=== PATIENT | male | born 2000 | race African-American/Black ===

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

== ENCOUNTER 2019-06-12 19:49 | Emergency (ER) | payer SELFPAY ==
--- NOTE | 2019-06-12 23:19 | ER Document Report ---
HPI - HPI Patient complains to provider of: sore throat, uri sx Time Seen by Provider: 06/12/19 22:47 Onset: This morning Onset/Duration: Gradual, Waxing and waning Quality of pain: Achy Severity: Mild Pain Level: 2 Context: 19 yr old male pt, with the listed pmh, here for multiple complaints to include uri sx of a nonproductive cough, sneezing, rhinorrhea, bilat clear runny eyes, and sore throat x 1 day. also requests a work note. tried otc meds once with no relief. no vision changes. no contacts or glasses. no eye surgeries. no hx of gl aucome. no photophobia or painful eoms. no eye pain or fb sensation. no recent abx or steroids. no hx of diabetes or asthma. no trouble breathing, swallowing or handling secretions. hasn't sought help until now. no other associated sx. Associated Symptoms: Allergy/hay fever, Nonproductive cough, Rhinnorhea, Sore throat. denies: Chest pain, Earache, Fever, Headache, Hurts to breath, Vomiting, Shortness of breath, Weakness Exacerbated by: Coughing Relieved by: Remaining still Recently seen / treated by doctor: No - ROS Systems Reviewed and Negative: Yes All other systems reviewed and negative - to include 10 systems, unless mentioned in the hpi Past Medical History - General Information source: Patient - Social History Smoking Status: Never Smoker Chew tobacco use (# tins/day): No Frequency of alcohol use: None Drug Abuse: None Lives with: Family Family History: Reviewed & Not Pertinent Patient has suicidal ideation: No Patient has homicidal ideation: No - Medical History Medical History: Negative Pulmonary Medical History: Denies: Hx Asthma Endocrine Medical History: Denies: Hx Diabetes Mellitus Type 1, Hx Diabetes Mellitus Type 2, Hx Hyperthyroidism, Hx Hypothyroidism Renal/ Medical History: Denies: Hx Peritoneal Dialysis GI Medical History: Denies: Hx Gastroesophageal Reflux Disease Infectious Medical History: Reports: None - Immunizations Immunizations up to date: Yes Hx Diphtheria, Pertussis, Tetanus Vaccination: Yes Vertical Provider Document - CONSTITUTIONAL Agree With Documented VS: Yes Exam Limitations: No Limitations General Appearance: WD/WN Notes: Vital signs: All vital signs were reviewed per nursing notes. Gen. appearance: Nontoxic, patient of stated age, sitting comfortably in the bed. pleasant, thin young black male, asleep when i enter the room, easily arou sible, multiple visitors in the room, laughing and joking around with the pt, smiling, speaking in full sentences, in no sign of pain or resp distress, Psychiatric: Alert and oriented x3, pleasant and very conversational, normal affect. Skin: Warm, pink, dry, normal turgor, no rashes. EYES: PERRL, EOMI without pain, conjunctiva have minimally to no injection bilat, cornea clear, mild bilat clear drainage_from_eyes. No photophobia. No nystagmus. No grossly visible fb. No hyphema. Eyelids wnl. No styes. No ttp or crepitation of the orbits. No sign of orbital or periorbital cellulitis ENT: Normocephalic, atraumatic, tympanic membranes normal, mucosal membranes moist, there is moderate pharyngeal erythema and no tonsillar exudate and mild hypertrophy bilaterally. There are no signs of abscess. The uvula is midline. There is no submandibular harness. There is no trismus. There is no tenderness over the sternocleidomastoid or thyroid cartilage. no drooling, tripoding, or hot potato voice. no oral lesions. no thrush. no tongue or lip swelling. mild ttp of the sinuses bilat. mild turbinate hypertrophy bilat. no epistaxis. no nasal drainage. Neck: Supple, no tenderness, no lymphadenopathy. full rom. full strength. no meningeal signs. CV: Regular rate and rhythm, Lungs: Clear to auscultation bilaterally, no wheezes, symmetrical chest rise. Abdomen: Soft, nontender, nondistended, good bowel sounds, no rebound, rigidity, guarding, peritoneal signs or organomegally. No CVA tenderness bilaterally. This is a nonacute abdomen. No tenderness over McBurney's point. Back: no tenderness Extremities: Full rom, full strength, good pulses, normal gait, no swelling or ttp of extremities. 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 Neuro: Cranial nerves II through XII intact, normal speech, cerebellar fxn intact, motor and sensation intact - INFECTION CONTROL TRAVEL OUTSIDE OF THE [place] IN LAST 30 DAYS: No Course - Re-evaluation Re-evalutation: pt here for likely viral uri, allergic rhinitis and allergic conjunctivitis x 1 day. rapid strep neg. throat cx pending. advised will call with any abnormal results that require change in plan of care. he responded well to tx here. will dc with bromfed and allaway eye drops. advised sx care. he denies any other vision changes or eye sx. he has no photophobia or painful eoms. afebrile and well appearing. advised to f/u with pcp/eye doctor in 1-2 days. return for any worsening symptoms. vss. well appearing. satting well on ra. neurononfocal. pt understands and agrees to plan. On reexam, pt improved with tx listed. remained stable. nontoxic. well appearing. pain controlled. tolerating po. requesting to go home. Documentation achieved through voice recording which may lead to some occasional accidental typographical errors. Extensive efforts have been made to proof read documentation to make sure these are the least as possible. Category Date Time Status Rapid Strep [DIRECT STREP,RAPID] [MO] Stat Lab 06/13/19 00:00 Completed THROAT CULTURE [[facility]] Routine Lab 06/13/19 00:00 Completed Dexamethasone Sod Phosphate [Decadron Inj 10 mg/1 ml Med 06/12/19 23:25 Discontinued Vial] 10 mg INJ NOW ONE - Vital Signs Vital signs: Temp Pulse Resp BP Pulse Ox 98.3 F 73 16 150/79 H 98 06/12/19 20:24 06/12/19 20:24 06/12/19 20:24 06/12/19 20:24 06/12/19 20:24 Temp Pulse Resp BP Pulse Ox 06/13/19 01:12 98.6 F 61 134/83 H 100 06/12/19 20:24 98.3 F 73 16 150/79 H 98 - Laboratory Laboratory results interpreted by me: Labs- Entire Visit 06/13/19 00:00 Group A Strep Rapid NEGATIVE Discharge - Discharge Clinical Impression: Viral conjunctivitis of both eyes, Encounter to obtain excuse from work URI (upper respiratory infection) Qualifiers: URI type: unspecified URI Qualified Code(s): J06.9 - Acute upper respiratory infection, unspecified Pharyngitis Qualifiers: Pharyngitis/tonsillitis etiology: unspecified etiology Qualified Code(s): J02.9 - Acute pharyngitis, unspecified Condition: Good Disposition: HOME, SELF-CARE Instructions: Upper Respiratory Illness ([facility]) Additional Instructions: Follow-up with PCP/eye doctor in 1 to 2 days. Return for any worsening symptoms. tylenol or motrin as needed for any pain or fever if not allergic. take the medication as prescribed. salt water gargles. drink plenty of fluids. we will call you with any abnormal results that require change in plan of care. Prescriptions: Ketotifen Fumarate [Alaway] 1 drop OU BID PRN #1 bottle PRN Reason: Secretions Phenylephrine/Brompheniramine [Bromfed Capsule] 1 each PO BID #14 cap.sr.12h Forms: Return to Work Referrals: FILIPE BRADLEY FNP-C [NO LOCAL MD] - Follow up in 3-5 days
[2019-06-12] MEDS ORDERED: DEXAMETHASONE SOD PHOS INJ 10 MG/1 ML VIAL INJ ONE (23:25)
[2019-06-13 01:16] VITALS: BP 134/83
== END 2019-06-13 01:16 | disposition home or self-care (01) ==
LOC: ER 19:49
DX: B30.9 Viral conjunctivitis, unspecified (principal); J06.9 Acute upper respiratory infection, unspecified; J02.9 Acute pharyngitis, unspecified; R05 Cough; R09.89 Other specified symptoms and signs involving the circulatory and respiratory systems; J34.89 Other specified disorders of nose and nasal sinuses
CPT/HCPCS: 99283; 96374; 87070; 87880; J1100